=== PATIENT | male | born 1960 | race Caucasian/White ===

== ENCOUNTER 2023-03-12 14:44 | Emergency (ER) | payer OTHER ==
[2023-03-12 15:04] VITALS: PULSE 92; RESP 18; TEMP 98.4
[2023-03-12 15:06] VITALS: BMI 26.5
[2023-03-12 15:07] VITALS: BP 127/88
== END 2023-03-12 17:35 | disposition home or self-care (01) ==
LOC: JERFT 14:44
DX: R05.1 Acute cough (principal); R51.9 Headache, unspecified; J02.9 Acute pharyngitis, unspecified; R09.81 Nasal congestion; Z20.822 Contact with and (suspected) exposure to COVID-19
CPT/HCPCS: 0241U-QW; 87651; 99283-25

== ENCOUNTER 2023-05-09 14:29 | Emergency (ER) | payer OTHER ==
[2023-05-09 14:41] VITALS: BP 146/87; PULSE 107; RESP 18; TEMP 98.9; BMI 26.9
[2023-05-09] MEDS ORDERED: IBUPROFEN 400 MG TABLET (FP) PO ONE ×2 (16:31→16:40)
[2023-05-09] MEDS ORDERED: DEXTROMETHORPHAN/PROMETHAZINE 15 MG/6.25 MG/5 ML SYRUP PO ONE (16:31)
== END 2023-05-09 17:58 | disposition home or self-care (01) ==
LOC: JERFT 14:29
DX: R50.9 Fever, unspecified (principal); R53.83 Other fatigue; R05.9 Cough, unspecified; J02.9 Acute pharyngitis, unspecified; B97.4 Respiratory syncytial virus as the cause of diseases classified elsewhere; Z20.822 Contact with and (suspected) exposure to COVID-19
CPT/HCPCS: 0241U-QW; 87651; 99283-25